=== PATIENT | male | born 1985 | race Caucasian/White ===

== ENCOUNTER 2018-11-26 14:34 | Day surgery (SDC) | payer SELFPAY ==
[~2018-11-26 14:34] MED LIST: BUPIVACAINE HCL/PF 0.5% (5 MG/ML) 30 ML VIAL IJ ONE
[2018-11-26] MEDS ORDERED: SODIUM CHLORIDE 1,000 ML IV STA (15:36)
[2018-11-26] MEDS ORDERED: morphine CARPU-JECT 4 MG/1 ML DISP.SYRIN IVPUSH ONE (15:36)
--- NOTE | 2018-11-26 15:43 | PDOC ---
History of Present Illness - General Chief Complaint: Pain, Acute Stated Complaint: ABD PAIN w/NAUSEA Time Seen by Provider: 11/26/18 15:25 History Source: Patient Exam Limitations: No Limitations - History of Present Illness Initial Comments: 11/26/18 15:37 33 yo M w/ no known PMhx comes in c/o sudden onset of periumbilical pain yesterday evening after eating chicken and jalapeno. Today, the pain started radiating to the RLQ and he has not slept all night due to pain, (+)anorexia, (+ )nausea. No other complaints today, no vomiting, no diarrhea (+) 3 episodes of formed non bloody stools. NO known sick contacts, no recent travel, no recent antibiotic use, no rash, no fever/chills, no headache, no neck pain/stiffness. Denies urinary/penile complaints. 11/26/18 15:43 Past History - Past Medical History Allergies/Adverse Reactions: Allergies Allergy/AdvReac Type Severity Reaction Status Date / Time No Known Allergies Allergy Verified 11/26/18 14:42 COPD: No Dialysis: No Kidney Stones: No - Surgical History Abdominal Surgery: No - Immunization History Immunization Up to Date: No - Psycho Social/Smoking Cessation Hx Smoking History: Never smoked Have you smoked in the past 12 months: No Information on smoking cessation initiated: No Hx Alcohol Use: No Drug/Substance Use Hx: Yes Review of Systems - Review of Systems Able to Perform ROS?: Yes Constitutional: No: Chills, Fever, Malaise, Night Sweats HEENTM: No: Eye Pain, Recent change in vision, Throat Pain Respiratory: No: Cough, Shortness of Breath Cardiac (ROS): No: Chest Pain, Palpitations, Chest Tightness ABD/GI: Yes: Nausea, Abdominal cramping. No: Diarrhea, Vomiting : No: Dysuria, Hematuria Musculoskeletal: No: Back Pain Integumentary: No: Rash Neurological: No: Headache, Numbness, Dizziness Psychiatric: No: Change in Appetite Endocrine: No: Unexplained Weight Loss *Physical Exam - Vital Signs Last Vital Signs Temp Pulse Resp BP Pulse Ox 98.3 F 70 18 139/77 98 11/26/18 14:39 11/26/18 14:39 11/26/18 14:39 11/26/18 14:39 11/26/18 14:39 - Physical Exam General Appearance: Yes: Nourished. No: Apparent Distress HEENT: positive: ALEXANDRA, Normal ENT Inspection, Normal Voice. negative: Pale Conjunctivae, Scleral Icterus (R), Scleral Icterus (L) Neck: positive: Supple. negative: Decreased range of motion, Tender midline Respiratory/Chest: positive: Lungs Clear, Normal Breath Sounds. negative: Respiratory Distress, Accessory Muscle Use Cardiovascular: positive: Regular Rhythm, Regular Rate Gastrointestinal/Abdominal: positive: Normal Bowel Sounds, Tender (RLQ at McBurney's point), Soft, Guarding (minimal), Rebound, Other ((+)psoas sign, (-) [place]) Musculoskeletal: positive: Normal Inspection. negative: CVA Tenderness, Decreased Range of Motion Extremity: positive: Normal Capillary Refill, Normal Inspection, Normal Range of Motion. negative: Tender, Pedal Edema Integumentary: positive: Normal Color, Dry. negative: Jaundice, Rash Neurologic: positive: Fully Oriented, Alert, Normal Mood/Affect ED Treatment Course - LABORATORY CBC & Chemistry Diagram: 11/26/18 15:50 11/26/18 15:50 - RADIOLOGY Radiology Studies Ordered: Category Date Time Status ABDOMEN & PELVIS CT WITH CONTR [CT] Stat CT Scan 11/26/18 15:33 Ordered Medical Decision Making - Medical Decision Making 11/26/18 15:41 33 yo M w/ RLQ tenderness w/ rebound, nausea, anorexia R/O appendicitis. WIll line and lab, do a CT abdomen/pelvis, give IV fluids, morphine and reassess. Urine also sent for GC/CT 11/26/18 15:59 Change of shift, care of patient signed over to FLORINDA Graf who will follow up labs, CT results and decide on dispo plan. R/O appendicitis. Case discussed with Dr. West 11/26/18 16:12 Discharge - Discharge Information Problems reviewed: Yes Clinical Impression/Diagnosis: Abdominal pain Qualifiers: Abdominal location: right lower quadrant Qualified Code(s): R10.31 - Right lower quadrant pain Condition: Stable - Follow up/Referral - Patient Discharge Instructions - Post Discharge Activity
[2018-11-26] MEDS ORDERED: morphine SULFATE 4 MG/ML VIAL ONE (15:55)
[2018-11-26 16:03] LABS: BASO % 0.2 % (0-2.0); EOS % 0.1 % (0-4.5); HEMATOCRIT 45.9 % (35.4-49); HEMOGLOBIN 16.2 GM/dL (11.7-16.9); LYMPH % 9.2 % (8-40); MCH 32.1 pg (25.7-33.7); MCHC 35.2 g/dl (32.0-35.9); MEAN CELL VOLUME 91.4 fl (80-96); MEAN PLT VOLUME 7.9 fl (7.5-11.1); MONO % 5.5 % (3.8-10.2); PLATELET COUNT 229 K/MM3 (134-434); RBC 5.03 M/mm3 (4.00-5.60); WHITE BLOOD COUNT 11.9 K/mm3 (4.0-10.0)
[2018-11-26 16:33] LABS: ALBUMIN 4.9 g/dl (3.4-5.0); BILIRUBIN,TOTAL 0.6 mg/dL (0.2-1); BLOOD UREA NITROGEN 12.1 mg/dL (7-18); CALCIUM 9.5 mg/dL (8.5-10.1); CREATININE 0.9 mg/dL (0.55-1.3); POTASSIUM 4.2 mmol/L (3.5-5.1); TOT PROT 8.1 g/dl (6.4-8.2)
[2018-11-26 17:39] LABS: URINE APPEARANCE CLEAR; URINE BILIRUBIN NEGATIVE (NEGATIVE); URINE COLOR YELLOW; URINE GLUCOSE (UA) NEGATIVE (NEGATIVE); URINE KETONE 1+ (NEGATIVE); URINE LEUK ESTERASE NEGATIVE (NEGATIVE); URINE NITRITE NEGATIVE (NEGATIVE); URINE PROTEIN TRACE (NEGATIVE); URINE UROBILINOGEN 0.2 mg/dL (0.2-1.0)
[2018-11-26] MEDS ORDERED: CEFOXITIN SODIUM 2 GM in DEXTROSE 5%-WATER - 100 ML IVPB ONE (17:42)
[2018-11-26] MEDS ORDERED: morphine CARPU-JECT 2 MG/1 ML DISP.SYRIN IVPUSH ONE (17:48)
[2018-11-26] MEDS ORDERED: LACTATED RINGERS SOLUTION 1,000 ML/1,000 ML INFUS.BAG IV SCH ×3 (18:00→23:43)
[2018-11-26] MEDS ORDERED: MORPHINE SULFATE 2 MG/ML VIAL ONE (18:09)
[2018-11-26] MEDS ORDERED: CEFOXITIN SODIUM/DEXTROSE,ISO 2 GM/50 ML BAG IVPB ONE (18:15)
--- NOTE | 2018-11-26 18:21 | PDOC ---
*Physical Exam - Vital Signs Last Vital Signs Temp Pulse Resp BP Pulse Ox 98.3 F 70 18 139/77 98 11/26/18 14:39 11/26/18 14:39 11/26/18 14:39 11/26/18 14:39 11/26/18 14:39 ED Treatment Course - LABORATORY CBC & Chemistry Diagram: 11/26/18 15:50 11/26/18 15:50 - ADDITIONAL ORDERS Additional order review: Laboratory Results 11/26/18 11/26/18 11/26/18 17:10 15:50 15:50 Sodium 138 Potassium 4.2 Chloride 102 Carbon Dioxide 28 Anion Gap 8 BUN 12.1 Creatinine 0.9 Est GFR (CKD-EPI)AfAm 130.52 Est GFR (CKD-EPI)NonAf 112.62 Random Glucose 119 H Calcium 9.5 Total Bilirubin 0.6 AST 20 ALT 32 Alkaline Phosphatase 87 Total Protein 8.1 Albumin 4.9 Lipase 149 Urine Color Yellow Urine Appearance Clear Urine pH 6.0 Ur Specific [place] 1.030 Urine Protein Trace Urine Glucose (UA) Negative Urine Ketones 1+ H Urine Blood Negative Urine Nitrite Negative Urine Bilirubin Negative Urine Urobilinogen 0.2 Ur Leukocyte Esterase Negative 11/26/18 15:50 RBC 5.03 MCV 91.4 MCHC 35.2 RDW 14.0 MPV 7.9 Neutrophils % 85.0 H Lymphocytes % 9.2 Monocytes % 5.5 Eosinophils % 0.1 Basophils % 0.2 - Medications Given in the ED: ED Medications Discontinued Medications Generic Name Dose Route Start Last Admin Trade Name Freq PRN Reason Stop Dose Admin Sodium Chloride 1,000 mls @ 1,000 mls/hr 11/26/18 15:36 11/26/18 16:02 Normal Saline - IV 11/26/18 16:35 1,000 mls/hr ASDIR STA Administration Morphine Sulfate 4 mg 11/26/18 15:36 11/26/18 16:02 Morphine Injection - IVPUSH 11/26/18 15:37 4 mg ONCE ONE Administration Medical Decision Making - Medical Decision Making Patient signed out to me by FLORINDA James pending CT results CT A/P shows acute appendicitis, no abscess or perforation noted Patient's last meal was at 11 PM last night Patient currently still having some RLQ abdominal pain Plan: NPO, LR, Morphine, Cefoxitin Case d/w Dr. Espino - patient to be admitted 11/26/18 18:19 Discharge - Discharge Information Problems reviewed: Yes Clinical Impression/Diagnosis: Appendicitis Qualifiers: Appendicitis type: acute appendicitis Acute appendicitis type: unspecified acute appendicitis type Qualified Code(s): K35.80 - Unspecified acute appendicitis Condition: Stable - Admission Yes - Additional Discharge Information Prescription Drug Monitoring Program (I-STOP) results: I-STOP not reviewed - Follow up/Referral - Patient Discharge Instructions - Post Discharge Activity
[2018-11-26 18:42] LABS: INR 1.01 (0.83-1.09); PROTHROMBIN TIME (PATIENT) 11.9 SEC (9.7-13.0)
[2018-11-26] MEDS ORDERED: ONDANSETRON 4 MG/2 ML VIAL IVPUSH PRN ×2 (19:49→23:43)
[2018-11-26] MEDS ORDERED: PROMETHAZINE HCL 25 MG/1 ML VIAL IVPUSH PRN (19:49)
--- NOTE | 2018-11-26 19:54 | HP ---
Admitting History and Physical - Admission Chief Complaint: lower abdominal pain History of Present Illness: 33yo M with no PMH or PSH except alcoholic drinking behavior (daily 10- 12 beers, last 2 days ago - had decided to quit again), presents with lower abdominal pain beginning yesterday afternoon, initially thought it was related to something he had for lunch. The pain persisted, and then began radiating across lower abdomen, first to the right, then also up both sides; he did not sleep well last night. He did have dinner last night, but only had some plain tea this morning, and came to the ER because the pain was still there and getting worse. He admits to some nausea but no vomiting, had several formed BMs yesterday, and denies urinary symptoms. No fever or chills, and no history of tremors, blackouts or seizures with or without drinking. He had quit for 2 years in the past, started drinking around age 25, resumed again about a year ago, and had decided Friday that he would stop again. He is seen and examined in ER holding, and is able to stand and move, but has pain in his lower abdomen, more RLQ. He is feeling a little better, did have one dose morphine earlier. 2g Cefoxitin was just started, and he has had IV fluids. NPO since last night, other than tea and water this morning. He is dry by labs, has wbc 11.9, and CT shows acute appendicitis with appendicoliths without perforation or abscess. History Source: Patient Limitations to Obtaining History: No Limitations - Past Medical History [place]: Yes: Other (denies alcohol withdrawal symptoms when not drinking). 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 denies: Recent Change in Vision HENT: reports: Nasal Congestion (had runny nose 2 wks ago with sneezing). denies: Difficult Swallowing, Throat Pain Neck: reports: Other (mild chronic pain in neck). denies: Swollen Glands, Tenderness Cardiovascular: denies: Chest Pain, Palpitations Respiratory: denies: Cough, SOB Gastrointestinal: reports: Abdominal Pain (with hpi), Nausea (with hpi). denies : Constipation, Diarrhea, Vomiting Genitourinary: denies: Burning, Dysuria Musculoskeletal: denies: Back Pain, Joint Pain, Muscle Pain Integumentary: denies: Change in Color, Rash Neurological: denies: Dizziness, Headache, Seizure, Tremors Psychiatric: denies: Anxiety, Depression Physical Examination Vital Signs: Vital Signs Temperature 98.5 F 11/26/18 18:53 Pulse Rate 86 11/26/18 18:53 Respiratory Rate 19 11/26/18 18:53 Blood Pressure 133/67 11/26/18 18:53 O2 Sat by Pulse Oximetry (%) 100 11/26/18 18:53 Constitutional: Yes: Well Nourished, No Distress Eyes: Yes: Conjunctiva Clear, EOM Intact HENT: Yes: Atraumatic, Normocephalic Neck: Yes: Supple, Trachea Midline Cardiovascular: Yes: Regular Rate and Rhythm Respiratory: Yes: Regular, CTA Bilaterally Gastrointestinal: Yes: Soft, Hypoactive Bowel Sounds, Tenderness (RLQ with referred tenderness from RUQ and LLQ/suprapubic areas to RLQ, no guarding), Tenderness, Rebound (focal in RLQ). No: Distention ...Rectal Exam: Yes: Deferred Renal/: No: CVA Tenderness - Left, CVA Tenderness - Right Musculoskeletal: No: Joint Stiffness, Joint Swelling Extremities: No: Cool, Cyanosis Edema: No Peripheral Pulses WNL: Yes Integumentary: No: Jaundice, Rash Neurological: Yes: Alert, Oriented. No: Tremors, Unsteady Gait Psychiatric: Yes: Alert, Oriented Labs: CBC, BMP 11/26/18 15:50 11/26/18 15:50 CMP Sodium 138 mmol/L (136-145) 11/26/18 15:50 Potassium 4.2 mmol/L (3.5-5.1) 11/26/18 15:50 Chloride 102 mmol/L (98-107) 11/26/18 15:50 Carbon Dioxide 28 mmol/L (21-32) 11/26/18 15:50 Anion Gap 8 MMOL/L (8-16) 11/26/18 15:50 BUN 12.1 mg/dL (7-18) 11/26/18 15:50 Creatinine 0.9 mg/dL (0.55-1.3) 11/26/18 15:50 Est GFR (CKD-EPI)AfAm 130.52 11/26/18 15:50 Est GFR (CKD-EPI)NonAf 112.62 11/26/18 15:50 Random Glucose 119 mg/dL (74-106) H 11/26/18 15:50 Calcium 9.5 mg/dL (8.5-10.1) 11/26/18 15:50 Total Bilirubin 0.6 mg/dL (0.2-1) 11/26/18 15:50 AST 20 U/L (15-37) 11/26/18 15:50 ALT 32 U/L (13-61) 11/26/18 15:50 Alkaline Phosphatase 87 U/L (45-117) 11/26/18 15:50 Total Protein 8.1 g/dl (6.4-8.2) 11/26/18 15:50 Albumin 4.9 g/dl (3.4-5.0) 11/26/18 15:50 Lipase 149 U/L (73-393) 11/26/18 15:50 INR, PTT INR 1.01 (0.83-1.09) 11/26/18 18:20 Urine Test Results Urine Color Yellow 11/26/18 17:10 Urine Appearance Clear 11/26/18 17:10 Urine pH 6.0 (5.0-8.0) 11/26/18 17:10 Ur Specific [place] 1.030 (1.010-1.035) 11/26/18 17:10 Urine Protein Trace (NEGATIVE) 11/26/18 17:10 Urine Glucose (UA) Negative (NEGATIVE) 11/26/18 17:10 Urine Ketones 1+ (NEGATIVE) H 11/26/18 17:10 Urine Blood Negative (NEGATIVE) 11/26/18 17:10 Urine Nitrite Negative (NEGATIVE) 11/26/18 17:10 Urine Bilirubin Negative (NEGATIVE) 11/26/18 17:10 Ur Leukocyte Esterase Negative (NEGATIVE) 11/26/18 17:10 Imaging - Results Cat Scan: Report Reviewed, Image Reviewed (appendix dilated with fluid and appendicoliths, periappendiceal edema, some fluid, no abscess, no free air, some rectovesical space fluid as well) Problem List - Problems (1) Acute appendicitis with localized peritonitis, without perforation, abscess , or gangrene Assessment/Plan: admit 23H/satellite to surgery NPO/IVF until postop periop antibiotics pain meds prn - nonnarcotics first line DVT prophylaxis Discussed with patient risks, benefits and alternatives of laparoscopic possible open appendectomy, including but not limited to bleeding, infection, injury to adjacent structures, intestinal leak or injury, intraabdominal abscess , incisional hernia, need for further procedures, ; alternatives include antibiotics, delayed or no surgery - risks of this include failure of nonoperative therapy, perforation, sepsis, recurrence, . Patient desires to proceed with operation - will take to OR for above. Informed consent signed for same. Code(s): K35.30 - ACUTE APPENDICITIS WITH LOC PERITONITIS, W/O PERF OR GANGR (2) RLQ abdominal pain Code(s): R10.31 - RIGHT LOWER QUADRANT PAIN (3) Nausea alone Code(s): R11.0 - NAUSEA (4) Alcohol abuse Assessment/Plan: monitor closely for withdrawal symptoms treat prn only strongly advised to continue abstaining from alcohol in the postoperative period Code(s): F10.10 - ALCOHOL ABUSE, UNCOMPLICATED
[2018-11-26] MEDS ORDERED: LACTATED RINGERS SOLUTION 1,000 ML IV SCH (20:00)
[2018-11-26] MEDS ORDERED: BUPIVACAINE HCL/PF 0.5% (5 MG/ML) 30 ML VIAL IJ ONE (20:20)
[2018-11-26] MEDS ORDERED: ROCURONIUM BROMIDE 50 MG/5 ML SYRINGE ONE (20:36)
[2018-11-26] MEDS ORDERED: MIDAZOLAM HCL 2 MG/2 ML SINGLE DOSE VIAL ONE (20:36)
[2018-11-26] MEDS ORDERED: PROPOFOL 20 ML ONE (20:36)
[2018-11-26] MEDS ORDERED: LIDOCAINE HCL/PF 2% SDV 5ML VIAL ONE (20:52)
[2018-11-26] MEDS ORDERED: KETOROLAC TROMETHAMINE 30 MG/1 ML VIAL ONE (21:53)
[2018-11-26] MEDS ORDERED: ACETAMINOPHEN INJECTION 100 ML IVPB ONE (21:59)
[2018-11-26] MEDS ORDERED: GLYCOPYRROLATE 0.2 MG/1 ML VIAL ONE (22:05)
[2018-11-26] MEDS ORDERED: NEOSTIGMINE METHYLSULFATE 0.5 MG/1 ML - 10 ML MDV ONE (22:05)
[2018-11-26] MEDS ORDERED: BENZOIN TINCTURE SWABSTICK TP ONE (22:12)
--- NOTE | 2018-11-26 22:46 | OP ---
Operative Note - Note: Operative Date: 11/26/18 Pre-Operative Diagnosis: acute appendicitis Operation: laparoscopic appendectomy Findings: gangrenous appendix with soft/pink base, appendicoliths palpable within appendix , no fluid noted in pelvis Post-Operative Diagnosis: Other (gangrenous appendicitis) Surgeon: Jordy Espino Anesthesiologist/CARDIOTHORACIC ICU RN: Ernesto Zhu Anesthesia: General, Local (20ml 0.5% marcaine) Specimens Removed: appendix to pathology Estimated Blood Loss (mls): 15 Drains & Tubes with Location: [place] out at case end Drains, Volume Out (mls): 350 (UOP) Fluid Volume Replaced (mls): 500 (crystalloid) Operative Report Dictated: Yes
[2018-11-27 00:31] VITALS: BMI 27.1
[2018-11-27] MEDS: ACETAMINOPHEN 325 MG TABLET (FP) PO SCH ×2 (05:05→11:52)
[2018-11-27] MEDS ORDERED: ACETAMINOPHEN 325 MG TABLET (FP) PO SCH ×2 (06:00)
[2018-11-27] MEDS ORDERED: IBUPROFEN 600 MG TABLET (FP) PO SCH (09:00)
[2018-11-27] MEDS: IBUPROFEN 600 MG TABLET (FP) PO SCH ×2 (09:36→14:55)
--- NOTE | 2018-11-27 10:36 | PN ---
Progress Note (short form) - Note Progress Note: Anesthesia postop note 33 y/o M s/p GA for laparoscopic appendectomy POD#1, vss, aaox3, no complaints. No anesthesia complications.
--- NOTE | 2018-11-27 12:08 | DS ---
Physical Examination Vital Signs: Vital Signs Temperature 99.2 F 11/27/18 08:05 Pulse Rate 91 H 11/27/18 08:05 Respiratory Rate 20 11/27/18 08:05 Blood Pressure 121/60 11/27/18 08:05 O2 Sat by Pulse Oximetry (%) 98 11/27/18 09:00 Findings/Remarks: S/P lap appy pt seen and examined sitting up in chair, about to eat lunch reports pain, more when up and walking, on both sides of lower abdomen no gas or BM yet about to get scheduled tylenol tolerated breakfast, ate "a little" has voided twice using IS with fair effort Constitutional: Yes: Well Nourished, No Distress, Calm Eyes: Yes: Conjunctiva Clear, EOM Intact HENT: Yes: Atraumatic, Normocephalic Cardiovascular: Yes: Regular Rate and Rhythm Respiratory: Yes: Regular, CTA Bilaterally Gastrointestinal: Yes: Normal Bowel Sounds, Soft, Distention (some), Tenderness (RLQ, RUQ, less LUQ, minimal LLQ - no rebound/guarding) Musculoskeletal: No: Joint Stiffness, Joint Swelling Extremities: No: Cool, Cyanosis Integumentary: Yes: Incision (x3 dressed). No: Jaundice, Rash Wound/Incision: Yes: Steri Strips (under dressings), Dressing Dry and Intact ( x3 - small dried spot on LLQ site). No: Dressing Removed Neurological: Yes: Alert, Oriented Labs: no new labs Discharge Summary Problems reviewed: Yes Reason For Visit: APPENDICITIS Current Active Problems Acute appendicitis with localized peritonitis and gangrene, without perforation or abscess (Acute) Alcohol abuse (Acute) Nausea alone (Acute) RLQ abdominal pain (Acute) Procedures: Principal: laparoscopic appendectomy Hospital Course: 33yo M with no PMH or PSH except heavy beer drinking (10-12 beers daily , last 2d prior to visit), presented to ER with lower abdominal pain, little more on right, beginning the afternoon prior, and continuing to get worse, associated with nausea but no vomiting, no F/C, no D/C. In the ER, he had mildly elevated WBC, and CT showed acute appendicitis with no apparent abscess or perforation, but appendicoliths present in the appendix. He was given IV fluids, pain meds and a dose of Cefoxitin 2g, and taken for laparoscopic appendectomy. His appendix was noted to be gangrenous but not grossly perforated. Postop, he has ambulated, voided and tolerated diet. His pain is managed with alternating tylenol and ibuprofen. He is discharged home with lifting restrictions to follow up in 2 weeks. He is referred to establish primary care as well. He is advised and encouraged to abstain from alcohol, and to seek help from a PMD for assistance in quitting. Time spent on discharge: 40 minutes Condition: Improved - Instructions Diet, Activity, Other Instructions: Postoperative instructions: You had a laparoscopic appendectomy on 11/26/[address] Jordy Espino of [facility]. Activity: Resume your usual activities gradually, but no heavy exertion or lifting more than 10-15 pounds for 1 month. Remove dressings 48 hours after surgery; sticky tapes underneath will fall off by themselves. You may shower daily with just the sticky tapes, just pat the incision areas dry. No bath or swimming until skin incisions have fully healed. Eat lightly at first, but advance to your usual diet as tolerated. Do not drink alcohol while you are recovering from surgery. Pain: For pain, you may use and alternate Tylenol (acetaminophen, regular or extra strength) 1-2 pills and/or ibuprofen 200 mg (1-3 pills) every 6 hours each as needed; this means that you can take one OR the other at 3-hour intervals. Do not take more than 4000mg of acetaminophen in a day. Take medications as prescribed or indicated on the labeling. Follow-up: Call Dr. Espino's office at [phone] to make your postop appointment (Friday in approximately 2 weeks after surgery). Clinic is held in the [facility] on the first floor of [facility]. Call the office if you have: * increasing pain not responsive to pain medication * fever of 101F or higher * vomiting * unusual or increasing bleeding or drainage from wounds * increasing redness or swelling at wound sites Also, call for an appointment with a primary medical doctor you have been referred to, within 1-[address] Ahmadi or Dr. Viera have offices at [address] [place] [address], the [facility] in the [facility]. [facility] is at [address] [place] [address]. Any one of these clinics should be able to see you for your medical care. Referrals: Jordy Espino MD [Staff Physician] - Igor Ahmadi MD [Staff Physician] - Mc Viera MD [Staff Physician] - [facility] [Provider Group] Disposition: HOME - Home Medications Comprehensive Discharge Medication List: Ambulatory Orders NK [No Known Home Medication] 11/26/18
[2018-11-27 14:51] VITALS: BP 124/67; PULSE 100
[2018-11-27 16:04] VITALS: TEMP 98.8
== END 2018-11-27 17:57 | disposition home or self-care (01) ==
LOC: JER 14:34 → JASUSAT 18:21 → JERBED 18:21 → UNDOADMIN 18:21 → J6S 23:55 → JASUSAT 11-27 17:57
PROVIDERS: ATTEND Surgery
CPT/HCPCS: 36415; 74177-TC; 80053; 81003; 83690; 85025; 85610; 85730; 86850; 86900; 86901; 87086; 87491; 87591; 94760; 99284-25; J0131; J7030

== ENCOUNTER 2018-11-30 03:35 | Emergency (ER) | payer SELFPAY ==
[2018-11-30 04:33] VITALS: BMI 26.6
--- NOTE | 2018-11-30 04:38 | PDOC ---
History of Present Illness - General Chief Complaint: Revisit,Wound Recheck Stated Complaint: POST OP PAIN/BLEEDING Time Seen by Provider: 11/30/18 04:36 History Source: Patient Exam Limitations: No Limitations - History of Present Illness Initial Comments: Pt is a 33 yo M, with PMH of chronic alcohol abuse, who is presenting with abdominal redness and drainage after having a laparoscopic appendectomy 11/26 ( Dr. Espino). Pt states he removed the dressing this morning, and noticed pustular drainage from the site that "smelled bad" and had surrounding drainage from the surgical site. Pt took tylenol and motrin for fever since yesterday, with minimal improvement of his symptoms. Pt has been eating and drinking without difficulty and is passing gas. Pt denies any recent headache, vision changes, syncope, chest pain, palpitations, SOB, nausea/vomiting, abdominal pain, urinary symptoms, diarrhea/constipation, or leg swelling]. Allergies: sulfa (extensive rash) Social: Pt drinks 10-12 beers a day. Denies withdrawal symptoms or seizures. Pt denies any recent travel or sick contacts. Surgical: agnieszka fung, see above. Family: no relevant history. 01/05/19 02:14 Past History - Travel Traveled outside of the country in the last 30 days: No Close contact w/someone who was outside of country & ill: No - Past Medical History Allergies/Adverse Reactions: Allergies Allergy/AdvReac Type Severity Reaction Status Date / Time sulfamethoxazole Allergy Verified 12/08/18 14:10 [From Bactrim] trimethoprim [From Bactrim] Allergy Verified 12/08/18 14:10 Home Medications: Ambulatory Orders Acetaminophen [Tylenol .Regular Strength -] 650 mg PO Q6H tablet 11/27/18 Ibuprofen [Motrin -] 600 mg PO Q6H tablet 11/27/18 Levofloxacin [Levaquin] 750 mg PO DAILY #5 tablet 12/04/18 COPD: No Dialysis: No Kidney Stones: No - Surgical History Abdominal Surgery: No - Immunization History Immunization Up to Date: No - Psycho Social/Smoking Cessation Hx Smoking History: Never smoked Have you smoked in the past 12 months: No If you are a former smoker, when did you quit?: 2011 Information on smoking cessation initiated: No Hx Alcohol Use: No Drug/Substance Use Hx: No Review of Systems - Review of Systems Able to Perform ROS?: Yes Is the patient limited Malay proficient: No Constitutional: Yes: Chills, Fever, Weight Stable. No: Diaphoresis, Loss of Appetite, Malaise, Weakness HEENTM: No: Recent change in vision, Nose Congestion, Throat Pain, Throat Swelling, Difficulty Swallowing Respiratory: No: Cough, Orthopnea, Shortness of Breath Cardiac (ROS): No: Chest Pain, Edema, Irregular Heart Rate, Lightheadedness, Palpitations, Syncope, Chest Tightness ABD/GI: Yes: See HPI. No: Abdominal Distended, Constipated, Diarrhea, Nausea, Poor Appetite, Poor Fluid Intake, Vomiting : No: Burning, Dysuria, Frequency, Pain, Urgency Musculoskeletal: No: Back Pain, Joint Pain, Muscle Pain, Muscle Weakness Integumentary: Yes: See HPI, Erythema. No: Rash Neurological: No: Headache, Numbness, Weakness, Dizziness Psychiatric: No: Sleep Pattern Change, Change in Appetite Endocrine: No: Increased Urine, Change in Weight Hematologic/Lymphatic: No: Anemia, Blood Clots, Easy Bleeding, Easy Bruising All Other Systems: Reviewed and Negative *Physical Exam - Vital Signs Last Vital Signs Temp Pulse Resp BP Pulse Ox 100.5 F H 95 H 19 122/85 98 11/30/18 03:35 11/30/18 03:35 11/30/18 03:35 11/30/18 03:35 11/30/18 03:35 - Physical Exam Comments: Vitals stable, pt febrile (100.5 oral). Pt in NAD, normal body habitus. Pt alert and oriented x3. informatics spec generally intact, muscular strength and sensation intact. No midline spinal tenderness, step-offs, or crepitus. Head normocephalic, atraumatic. Eyes PERRLA, EOMI. Oropharynx without erythema or exudates, no LAD b/l. No nasal congestion. Hearing intact. Clear heart sounds, S1/S2, no JVD, b/l pedal edema, or heart murmur. Clear lung sounds, no respiratory distress, wheezes, crackles, or accessory muscle use. Danyell-umbilical surgical incision site with surrounding erythema and pustular drainage. No abdominal or CVA tenderness to palpation, no rebound, no guarding. Abdomen soft, non-distended, and with normoactive bowel sounds. Skin otherwise without jaundice or rash, except as noted above. 11/12/19 02:20 ED Treatment Course - LABORATORY CBC & Chemistry Diagram: 11/30/18 04:45 11/30/18 04:45 Medical Decision Making - Medical Decision Making Pt s/p laparoscopic appendectomy with pustular drainage from surgical site and fever. Will obtain sepsis w/u and cultures. Providing IV zosyn for abx coverage. Paged Dr. Espino for consultation. Dr. Espino will see pt in the ER. Pt signed out to day team. 11/30/18 05:24 01/05/19 02:20 Discharge - Discharge Information Problems reviewed: Yes Clinical Impression/Diagnosis: Visit for wound check Condition: Stable - Additional Discharge Information Prescriptions: Levofloxacin [Levaquin] 750 mg PO DAILY #5 tablet - Follow up/Referral Referrals: Jordy Espino MD [Staff Physician] - (call for appointment in [facility]ound [facility] Center at [facility] 5th Floor [address] at [phone] for 1 week on Friday) - Patient Discharge Instructions Patient Printed Discharge Instructions: How to Care for a Surgical Wound Additional Instructions: You came to the ER for pain, redness and drainage from your umbilical incision. You were found to have a postoperative wound infection and culture was taken. The wound was packed with small gauze ribbon and you were shown how to continue doing this once daily. You are prescribed an antibiotic to take for the next week - Bactrim twice daily for 7 days. Take all of the pills even if you feel better. Continue using tylenol and ibuprofen for pain as needed at home - cut down on how much and how often as your pain improves. Wound care: Remove the dressing and the ribbon from the wound before you take a shower every day. It is ok to wash with soap and water, gently on the incision areas. Pat the sites dry afterward, and gently make sure any fluid comes out of the wound site. With clean hands, gently tuck/pack the 1/4" ribbon gauze into the wound at your belly button until it does not fit more and trim it off so a small piece hangs out. Cover with folded gauze and secure in place with tape. Take care not to put tape over the small blisters near the area. The dressing should be changed every day. If it gets very wet, it is ok to change twice in a day. The blisters will heal on their own - it is ok to cover them with bandaids if you need to. Call [phone] for an appointment with Dr. Espino next Friday in the [facility]. It is on the 5th floor (5 West) of the hospital. Also call to get an appointment with a primary care physician with one of the clinics you were referred to while in the hospital last week. Call Dr. Espino's office at [phone] or return to ER if you have: Fever over 101 F Increasing drainage or bleeding from your wound Increasing pain not controlled with tylenol or ibuprofen Increasing or spreading redness around the wound - Post Discharge Activity
[2018-11-30] MEDS ORDERED: IBUPROFEN 600 MG TABLET (FP) PO ONE ×2 (04:53→04:58)
[2018-11-30] MEDS ORDERED: SODIUM CHLORIDE 1,000 ML IV STA (04:54)
[2018-11-30 05:23] LABS: BASO % 0.3 % (0-2.0); EOS % 2.1 % (0-4.5); HEMATOCRIT 39.8 % (35.4-49); LYMPH % 11.9 % (8-40); MCH 32.1 pg (25.7-33.7); MCHC 35.2 g/dl (32.0-35.9); MEAN CELL VOLUME 91.2 fl (80-96); MONO % 9.5 % (3.8-10.2); NEUT % 76.2 % (42.8-82.8); PLATELET COUNT 249 K/MM3 (134-434); RBC 4.36 M/mm3 (4.00-5.60); RDW 14.2 % (11.9-15.9); WHITE BLOOD COUNT 7.3 K/mm3 (4.0-10.0)
--- NOTE | 2018-11-30 05:25 | PDOC ---
Attending Attestation - Resident Resident Name: Sybil Paul - ED Attending Attestation I have performed the following: I have examined & evaluated the patient, The case was reviewed & discussed with the resident, I agree w/resident's findings & plan - HPI HPI: 11/30/18 05:22 Pt comes with pus from his infraumbilical surg site; he has laparoscopic appendectomy on . Now he is expressing pus from the umbilicus and there is a 2cm radius circular cellulitis surrounding the umbilicus - Physicial Exam PE: 11/30/18 05:24 Agree with resident exam. Pt has a fever 100.5 Cellulitis of abd wall; s/p surgery infected surg wound. Pt will be started on abx and ofirmev and we will call Dr. Espino. - Medical Decision Making 11/30/18 05:54 Pt's surgeon is aware and she will come to see him and eval this AM @8:30 12/01/18 22:34 Pt signed out to the day ER doctor Popeye and his team
[2018-11-30] MEDS ORDERED: PIPERACILLIN/TAZOB 3.375 GM 4.5 GM in DEXTROSE 5%-WATER - 50 ML IVPB ONE (05:40)
[2018-11-30 05:55] LABS: ALBUMIN 3.5 g/dl (3.4-5.0); BILIRUBIN,TOTAL 0.7 mg/dL (0.2-1); BLOOD UREA NITROGEN 14.2 mg/dL (7-18); CALCIUM 8.5 mg/dL (8.5-10.1); CREATININE 0.9 mg/dL (0.55-1.3); POTASSIUM 3.6 mmol/L (3.5-5.1); TOT PROT 7.1 g/dl (6.4-8.2)
[2018-11-30] MEDS ORDERED: PIPERACILLIN/TAZOB 4.5 GM 4.5 GM/100 ML BAG IVPB ONE (06:03)
--- NOTE | 2018-11-30 07:23 | PDOC ---
History of Present Illness - General Chief Complaint: Revisit,Wound Recheck Stated Complaint: POST OP PAIN/BLEEDING Time Seen by Provider: 11/30/18 04:36 Past History - Past Medical History Allergies/Adverse Reactions: Allergies Allergy/AdvReac Type Severity Reaction Status Date / Time No Known Allergies Allergy Verified 11/30/18 04:33 Home Medications: Ambulatory Orders Acetaminophen [Tylenol .Regular Strength -] 650 mg PO Q6H tablet 11/27/18 Ibuprofen [Motrin -] 600 mg PO Q6H tablet 11/27/18 Sulfamethoxazole/Trimethoprim [Bactrim Ds Tablet] 1 each PO BID #14 tablet 11/30 COPD: No Dialysis: No Kidney Stones: No - Surgical History Abdominal Surgery: No Appendectomy: Yes (11/26/2018) - Immunization History Immunization Up to Date: No - Psycho Social/Smoking Cessation Hx Smoking History: Never smoked Have you smoked in the past 12 months: No If you are a former smoker, when did you quit?: 2011 Information on smoking cessation initiated: No Hx Alcohol Use: No Drug/Substance Use Hx: No *Physical Exam - Vital Signs Last Vital Signs Temp Pulse Resp BP Pulse Ox 100.5 F H 95 H 19 122/85 98 11/30/18 03:35 11/30/18 03:35 11/30/18 03:35 11/30/18 03:35 11/30/18 03:35 ED Treatment Course - LABORATORY CBC & Chemistry Diagram: 11/30/18 04:45 11/30/18 04:45 - ADDITIONAL ORDERS Additional order review: Laboratory Results 11/30/18 04:45 Sodium 140 Potassium 3.6 Chloride 103 Carbon Dioxide 26 Anion Gap 11 BUN 14.2 Creatinine 0.9 Est GFR (CKD-EPI)AfAm 130.52 Est GFR (CKD-EPI)NonAf 112.62 Random Glucose 102 Calcium 8.5 Total Bilirubin 0.7 AST 28 ALT 33 Alkaline Phosphatase 207 H Total Protein 7.1 Albumin 3.5 11/30/18 04:45 RBC 4.36 MCV 91.2 MCHC 35.2 RDW 14.2 MPV 8.0 Neutrophils % 76.2 Lymphocytes % 11.9 D Monocytes % 9.5 Eosinophils % 2.1 D Basophils % 0.3 - Medications Given in the ED: ED Medications Discontinued Medications Generic Name Dose Route Start Last Admin Trade Name Freq PRN Reason Stop Dose Admin Sodium Chloride 1,000 mls @ 1,000 mls/hr 11/30/18 04:54 11/30/18 05:12 Normal Saline - IV 11/30/18 05:53 1,000 mls/hr ASDIR STA Administration Piperacillin Sod/Tazobactam 50 mls @ 100 mls/hr 11/30/18 05:40 11/30/18 06:10 Sod 4.5 gm/ Dextrose IVPB 11/30/18 06:09 100 mls/hr ONCE ONE Administration Protocol Ibuprofen 600 mg 11/30/18 04:53 11/30/18 05:01 Motrin - PO 11/30/18 04:54 600 mg ONCE ONE Administration Medical Decision Making - Medical Decision Making Patient signed out by Dr. Paul 33yo M with recent laparoscopic appendectomy on 11/26 presenting with fever and surgical site erythema, drainage, and skin breakdown -Covered with antibiotics here -Pending surgical evaluation 11/30/18 07:[address] Espino 7 days of bactrim 1DS BID As patient is without insurance, I called the pharmacy and ensured that this medication is affordable (about $7) Wound care supplies (about $3) Follow up on Friday in 8 days at [facility] Discharged with return precautions 11/30/18 09:41 Discharge - Discharge Information Problems reviewed: Yes Clinical Impression/Diagnosis: Visit for wound check Condition: Stable Disposition: HOME - Additional Discharge Information Prescriptions: Sulfamethoxazole/Trimethoprim [Bactrim Ds Tablet] 1 each PO BID #14 tablet - Follow up/Referral Referrals: Jordy Espino MD [Staff Physician] - (call for appointment in Wound Healing Center at [facility] 5th Floor [address] at [phone] for 1 week on Friday) - Patient Discharge Instructions Patient Printed Discharge Instructions: How to Care for a Surgical Wound Additional Instructions: You came to the ER for pain, redness and drainage from your umbilical incision. You were found to have a postoperative wound infection and culture was taken. The wound was packed with small gauze ribbon and you were shown how to continue doing this once daily. You are prescribed an antibiotic to take for the next week - Bactrim twice daily for 7 days. Take all of the pills even if you feel better. Continue using tylenol and ibuprofen for pain as needed at home - cut down on how much and how often as your pain improves. Wound care: Remove the dressing and the ribbon from the wound before you take a shower every day. It is ok to wash with soap and water, gently on the incision areas. Pat the sites dry afterward, and gently make sure any fluid comes out of the wound site. With clean hands, gently tuck/pack the 1/4" ribbon gauze into the wound at your belly button until it does not fit more and trim it off so a small piece hangs out. Cover with folded gauze and secure in place with tape. Take care not to put tape over the small blisters near the area. The dressing should be changed every day. If it gets very wet, it is ok to change twice in a day. The blisters will heal on their own - it is ok to cover them with bandaids if you need to. Call [phone] for an appointment with Dr. Espino next Friday in the [facility]. It is on the 5th floor (5 West) of the hospital. Also call to get an appointment with a primary care physician with one of the clinics you were referred to while in the hospital last week. Call Dr. Espino's office at [phone] or return to ER if you have: Fever over 101 F Increasing drainage or bleeding from your wound Increasing pain not controlled with tylenol or ibuprofen Increasing or spreading redness around the wound - Post Discharge Activity
--- NOTE | 2018-11-30 09:54 | CONSULT ---
Consult Consult Specialty:: General Surgery Referred by:: Mulugeta Paul Reason for Consultation:: ?umbilical site infection - History of Present Illness Chief Complaint: umbilical drainage, redness, fever History of Present Illness: 33yo M s/p lap appy 4 days ago for acute appendicitis with findings of gangrenous appendix, called yesterday about cloudy, foul-smelling drainage from umbilical site. Came to ER overnight - wbc 7, T 100.5, subjective fever at home and more drainage brought him in. It is also a little reddened and tender at the site. Eating well, normal bowel function, voiding, pain controlled with tylenol and ibuprofen at home, still with some RLQ pain. No n/v or other complaints. Seen and examined in ER, resting comfortably. Has had one dose Zosyn. Has not removed steristrips from incisions; showered after outer dressings came off ok. 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 drinking) Psych: Yes: Addictions (alcohol - heavy beer drinker) - Past Surgical History Past Surgical History: Yes: None - Alcohol/Substance Use Hx Alcohol Use: No Number of Drinks Daily: 10 (beer - 10-12 12oz beers daily) History of Substance Use: reports: Cocaine (quit 7 yrs ago (snorting)), Marijuana (quit 7 yrs ago) Date of Last Use: 11/24/18 (heavy drinker x 7-8 yrs, quit x 2yrs, resumed 1 yr ago) - Smoking History Smoking history: Never smoked Have you smoked in the past 12 months: No If you are a former smoker, when did you quit?: 2012 - Social History ADL: Independent Occupation: works in [employer] Home Medications - Allergies Allergies/Adverse Reactions: Allergies Allergy/AdvReac Type Severity Reaction Status Date / Time No Known Allergies Allergy Verified 11/30/18 04:33 - Home Medications Home Medications: Ambulatory Orders Acetaminophen [Tylenol .Regular Strength -] 650 mg PO Q6H tablet 11/27/18 Ibuprofen [Motrin -] 600 mg PO Q6H tablet 11/27/18 Sulfamethoxazole/Trimethoprim [Bactrim Ds Tablet] 1 each PO BID #14 tablet 11/30 Family Medical History Family History: Unremarkable (noncontributory) Review of Systems - Review of Systems Constitutional: reports: Fever. denies: Chills Eyes: denies: Blurred Vision, Recent Change in Vision HENT: denies: Difficult Swallowing, Throat Pain Neck: denies: Swollen Glands, Tenderness Cardiovascular: denies: Chest Pain, Palpitations Respiratory: denies: Cough, SOB Gastrointestinal: reports: Abdominal Pain. denies: Constipation, Diarrhea, Nausea, Vomiting Genitourinary: denies: Burning, Dysuria Musculoskeletal: denies: Back Pain, Joint Pain Integumentary: reports: Blister (couple small spots around previous dressings on abdomen), Erythema (at umbilical site), Incision (x3 w/steris). denies: Rash Neurological: denies: Dizziness, Headache Physical Exam Vital Signs: Vital Signs Temperature 98.5 F 11/30/18 07:38 Pulse Rate 72 11/30/18 07:38 Respiratory Rate 18 11/30/18 07:38 Blood Pressure 107/70 11/30/18 07:38 O2 Sat by Pulse Oximetry (%) 99 11/30/18 07:38 Constitutional: Yes: Well Nourished, No Distress, Calm, Diaphoresis Eyes: Yes: Conjunctiva Clear, EOM Intact HENT: Yes: Atraumatic, Normocephalic Neck: Yes: Supple, Trachea Midline Cardiovascular: Yes: Regular Rate and Rhythm Respiratory: Yes: Regular, CTA Bilaterally Gastrointestinal: Yes: Soft, Tenderness (RLQ no rebound or guarding, mild incisional at umbilical site). No: Distention ...Rectal Exam: Yes: Deferred Renal/: No: CVA Tenderness - Left, CVA Tenderness - Right Musculoskeletal: No: Joint Stiffness, Joint Swelling Extremities: No: Cool, Cyanosis Edema: No Peripheral Pulses WNL: Yes Integumentary: Yes: Erythema (mild at umbilical area), Incision (x3 with steris) . No: Rash Wound/Incision: Yes: Steri Strips (x3 - c/d/i on LLQ and suprapubic), Dressing Removed (steristrips removed from umbilical site with purulent drainage - culture taken after chloraprep to site), Draining (purulent drainage, serosang/ cloudy/+ odor), Other (superior pole of umbilical site opened - suture snipped - space evacuated and packed gently with 1/4" iodoform ribbon, covered with folded 2x2 gauze and tape to hold) Neurological: Yes: Alert, Oriented Psychiatric: Yes: Alert, Oriented Labs: CBC, BMP 11/30/18 04:45 11/30/18 04:45 Problem List - Problems (1) Postoperative wound infection Assessment/Plan: umbilical wound opened for culture and packing in superior aspect pt instructed on technique to continue daily wound care with packing changes - given supplies instructions in d/c plan Zosyn given in ED Rx Bactrim DS bid x 7d to f/u with me in Wound Center 12/08 - call for appt [phone] pt understands and agrees with plan Code(s): T81.49XA - INFECTION FOLLOWING A PROCEDURE, OTHER SURGICAL SITE, INIT (2) Umbilical pain Code(s): R10.33 - PERIUMBILICAL PAIN (3) Fever due to infection Assessment/Plan: low grade temp continue tyl/ibu at home prn Code(s): R50.81 - FEVER PRESENTING WITH CONDITIONS CLASSIFIED ELSEWHERE; B99.9 - UNSPECIFIED INFECTIOUS DISEASE (4) RLQ abdominal pain Code(s): R10.31 - RIGHT LOWER QUADRANT PAIN
[2018-11-30 11:02] VITALS: BP 110/70; PULSE 77; TEMP 98.1
== END 2018-11-30 11:02 ==
LOC: JER 03:35
PROC: 3E0337Z Introduction of Electrolytic and Water Balance Substance into Peripheral Vein, Percutaneous Approach (ICD-10-PCS; principal; 2018-11-30)
PROC: 3E03329 Introduction of Other Anti-infective into Peripheral Vein, Percutaneous Approach (ICD-10-PCS; 2018-11-30)
PROC: 0J9C3ZZ Drainage of Pelvic Region Subcutaneous Tissue and Fascia, Percutaneous Approach (ICD-10-PCS; 2018-11-30)
PROC: 0J980ZZ Drainage of Abdomen Subcutaneous Tissue and Fascia, Open Approach (ICD-10-PCS; 2018-11-30)
DX: T81.41XA Infection following a procedure, superficial incisional surgical site, initial encounter (principal); B99.9 Unspecified infectious disease; R50.82 Postprocedural fever
CPT/HCPCS: 36415; 80053; 85025; 87040; 87070; 87186; 87205; 99283-25; J7030